=== PATIENT | male | born 1945 | race Caucasian/White ===

== ENCOUNTER 2021-02-18 12:09 | Inpatient (IN) | payer OTHER, MEDICARE ==
[~2021-02-18] VITALS: Ht 172.7 cm; Wt 178.0 kg
[2021-02-18 12:56] LABS: BASOPHILS # (AUTO) 0.1 X10'3 (0-0.2); BASOPHILS % (AUTO) 0.7 % (0-1); EOSINOPHILS # (AUTO) 0.3 X10'3 (0-0.9); NEUTROPHILS # (AUTO) 8.9 X10'3 (1.8-7.7)
[2021-02-18 12:58] LABS: EOSINOPHILS % (AUTO) 1.9 % (0-6); HEMATOCRIT 39.2 % (42.0-52.0); LYMPHOCYTES # (AUTO) 2.1 X10'3 (1.1-4.8); LYMPHOCYTES % (AUTO) 15.4 % (21-51); MEAN CORPUSCULAR HEMOGLOBIN 30.5 PG (27.0-31.0); MEAN CORPUSCULAR HGB CONC 33.1 g/dL (33.0-36.5); MEAN CORPUSCULAR VOLUME 92.4 FL (78-98); MEAN PLATELET VOLUME 11.6 FL (7.4-10.4); MONOCYTES # (AUTO) 2.6 X10'3 (0-0.9); MONOCYTES % (AUTO) 18.4 % (2-12); NEUTROPHILS % (AUTO) 63.6 % (42-75); PLATELET COUNT 230 X10'3 (140-440); RED BLOOD COUNT 4.24 X10'6 (4.70-6.10); RED CELL DISTRIBUTION WIDTH 15.1 % (11.5-14.5); WHITE BLOOD COUNT 13.9 X10'3 (4.5-11.0)
[2021-02-18 13:09] LABS: ALANINE AMINOTRANSFERASE 33 U/L (12-78); ALBUMIN 3.4 G/DL (3.4-5.0); ALBUMIN/GLOBULIN RATIO 0.7 (1.1-1.5); ALKALINE PHOSPHATASE 84 IU/L (46-116); ANION GAP 12 (8-16); ASPARTATE AMINO TRANSFERASE 51 U/L (10-37); BILIRUBIN,TOTAL 1.3 MG/DL (0.1-1.0); BLOOD UREA NITROGEN 33 MG/DL (7-18); BUN/CREATININE RATIO 21.2 (5.4-32.0); CALCIUM 9.2 MG/DL (8.5-10.1); CHLORIDE 101 MMOL/L (99-107); CREATININE 1.56 MG/DL (0.60-1.10); GLUCOSE 127 MG/DL (70-104); POTASSIUM 3.9 MMOL/L (3.5-5.1); SODIUM 139 MMOL/L (135-145); TOTAL CARBON DIOXIDE 26.1 MMOL/L (24-32); eGFR 44 ML/MIN
[2021-02-18] MEDS ORDERED: CefTRIAXone 2gm/D5W 50ml BAG 50 ML IV ONE (14:10)
[2021-02-18] MEDS ORDERED: azithromycin/NS 500mg/250ml 250 ML IV ONE (14:10)
[2021-02-18] MEDS ORDERED: albuterol 2.5 MG/3 ML nebule CONTNEB PRN (14:20)
[2021-02-18] MEDS ORDERED: methylPREDNISolone sod succ 125mg/2ml vial IV ONE (14:20)
[2021-02-18] MEDS ORDERED: ipratropium 0.5 MG/2.5ML nebule IH ONE (14:20)
[2021-02-18] MEDS ORDERED: normal saline 1000ML IV soln IVB ONE (14:25)
[2021-02-18 15:18] LABS: ABG BASE EXCESS -1.5 mmol/L (-2.0-2.0); ABG HCO3 22.2 mmol/L (22.0-26.0); ABG PCO2 (T) 34.4 mmHg (35.0-48.0); ABG PO2 (T) 87.4 mmHg (75.0-100.0); ALLEN'S TEST POSITIVE; FCOHb 1.3 % (0.0-3.9); FLOW 3 L/min; FMetHb 0.3 % (0.0-1.5); FO2Hb 94.5 % (94-97); TOTAL HEMOGLOBIN 12.9 G/dl (14.0-18.0)
[2021-02-18] MEDS ORDERED: morphine 2 MG/ML inj. syringe IV PRN ×2 (16:05)
[2021-02-18] MEDS ORDERED: magnesium hydroxide 30ml (MOM) UD suspension PO PRN (16:05)
[2021-02-18] MEDS ORDERED: ondansetron/PF 4mg/2ml inj IV PRN (16:05)
[2021-02-18] MEDS ORDERED: mag hydrox/Alum hydrox/simeth 30ml oral suspension PO PRN (16:05)
[2021-02-18] MEDS ORDERED: acetaminophen 325mg tablet PO PRN ×2 (16:05)
[2021-02-18] MEDS: HYDROcodone/acetaminophen 5mg/325mg tablet PO PRN ×2 (16:23→23:43)
[2021-02-18] MEDS ORDERED: BUDE10.2 INH (16:24)
[2021-02-18] MEDS ORDERED: ROSU10TA2 PO (16:24)
[2021-02-18] MEDS ORDERED: CARB-212 PO (16:24)
[2021-02-18] MEDS ORDERED: ZOLP5TAB2 PO (16:24)
[2021-02-18] MEDS ORDERED: CARV-49 PO (16:24)
[2021-02-18] MEDS ORDERED: FLUT16SP2 BOTHNARES (16:24)
[2021-02-18] MEDS ORDERED: NITR0.4T51 SL (16:24)
[2021-02-18] MEDS ORDERED: CLOP75TA15 PO (16:24)
[2021-02-18] MEDS ORDERED: CHOL20004 PO (16:24)
[2021-02-18] MEDS ORDERED: LEVO150T8 PO (16:24)
[2021-02-18] MEDS ORDERED: PRED5DRO23 EACHEYE (16:24)
[2021-02-18] MEDS ORDERED: ISOS60TA71 PO (16:24)
[2021-02-18] MEDS ORDERED: TIOT4MIS5 IH (16:24)
[2021-02-18] MEDS ORDERED: DULO20CA50 PO (16:24)
[2021-02-18] MEDS ORDERED: WOOL454C TP (16:24)
[2021-02-18] MEDS ORDERED: LIDO700A32 TOP (16:24)
[2021-02-18] MEDS ORDERED: NIFE-33 PO (16:24)
[2021-02-18] MEDS ORDERED: OMEP20TA23 PO (16:24)
[2021-02-18] MEDS ORDERED: FLO0.4C PO (16:24)
[2021-02-18] MEDS ORDERED: MONT10TA21 PO (16:24)
[2021-02-18] MEDS ORDERED: ASPI-611 PO (16:24)
[2021-02-18] MEDS ORDERED: nitroGLYCERIN 0.4mg SUBLingual tab SL PRN (16:55)
[2021-02-18] MEDS: levoFLOXACIN-Levaquin 750MG/D5 150 ML IV SCH (17:21)
[2021-02-18] MEDS: carvedilol 6.25mg tablet PO SCH (18:22)
--- NOTE | 2021-02-18 19:16 | NUR ---
report given to bruno pratt in [facility]
[2021-02-18 20:00] VITALS: BP 104/68
[2021-02-18] MEDS: mineral oil/petrolatum, white cream 113gm jar TP SCH (20:00)
[2021-02-18] MEDS ORDERED: budesonide 0.5mg/2ml UD nebule IH SCH (20:00)
[2021-02-18] MEDS: budesonide 0.5mg/2ml UD nebule IH SCH (20:23)
[2021-02-18 22:00] VITALS: BP 109/69
[2021-02-18] MEDS: montelukast 10mg tablet PO SCH (23:41)
[2021-02-18] MEDS: methylPREDNISolone sod succ 125mg/2ml vial IV SCH (23:41)
[2021-02-18] MEDS: carBAMazepine Ext. Release 200 MG TAB.ER.12H PO SCH (23:42)
[2021-02-19] MEDS: zolpidem 5mg tablet PO PRN ×2 (01:36→20:56)
[2021-02-19 06:00] VITALS: BP 146/74
[2021-02-19 06:34] LABS: ALBUMIN 2.8 G/DL (3.4-5.0); ANION GAP 9 (8-16); BLOOD UREA NITROGEN 27 MG/DL (7-18); BUN/CREATININE RATIO 23.9 (5.4-32.0); CALCIUM 8.7 MG/DL (8.5-10.1); CHLORIDE 103 MMOL/L (99-107); CREATININE 1.13 MG/DL (0.60-1.10); GLUCOSE 146 MG/DL (70-104); POTASSIUM 4.6 MMOL/L (3.5-5.1); SODIUM 137 MMOL/L (135-145); TOTAL CARBON DIOXIDE 25.1 MMOL/L (24-32); eGFR 63 ML/MIN
[2021-02-19 06:38] LABS: BASOPHILS % (AUTO) 0.1 % (0-1); EOSINOPHILS % (AUTO) 0 % (0-6); MEAN CORPUSCULAR HGB CONC 33.4 g/dL (33.0-36.5); MEAN CORPUSCULAR VOLUME 92.9 FL (78-98); MONOCYTES # (AUTO) 0.9 X10'3 (0-0.9); NEUTROPHILS # (AUTO) 8.8 X10'3 (1.8-7.7)
--- NOTE | 2021-02-19 06:40 | NUR ---
Patient in room PCU 3010. I have received report from Nicole MCKINNON and had the opportunity to ask questions and assume patient care.
[2021-02-19 06:41] LABS: HEMATOCRIT 38.4 % (42.0-52.0); HEMOGLOBIN 12.8 g/dl (14.0-17.9); LYMPHOCYTES # (AUTO) 1.4 X10'3 (1.1-4.8); LYMPHOCYTES % (AUTO) 12.8 % (21-51); MONOCYTES % (AUTO) 8.3 % (2-12); NEUTROPHILS % (AUTO) 78.8 % (42-75); PLATELET COUNT 223 X10'3 (140-440); RED BLOOD COUNT 4.14 X10'6 (4.70-6.10); RED CELL DISTRIBUTION WIDTH 15.3 % (11.5-14.5); WHITE BLOOD COUNT 11.1 X10'3 (4.5-11.0)
[2021-02-19 06:55] VITALS: BP 158/90
--- NOTE | 2021-02-19 07:06 | NUR ---
Problems reprioritized. Patient report given, questions answered & plan of care reviewed with Jonathan MCKINONN.
[2021-02-19 07:20] LABS: ANISOCYTOSIS 1+; LARGE PLATELETS FEW; PLATELET ESTIMATE NORMAL
[2021-02-19] MEDS: carvedilol 6.25mg tablet PO SCH ×2 (07:30→17:25)
[2021-02-19] MEDS: cholecalciferol (vitamin D3) 1,000 unit (25mcg) tablet PO SCH (08:00)
[2021-02-19] MEDS: pantoprazole 40mg Tablet.DR PO SCH (08:00)
[2021-02-19] MEDS: aspirin 81mg tablet.DR PO SCH (08:00)
[2021-02-19] MEDS: methylPREDNISolone sod succ 125mg/2ml vial IV SCH ×3 (08:00→23:28)
[2021-02-19] MEDS: duloxetine 20mg capsule.DR PO SCH (08:00)
[2021-02-19] MEDS: isosorbide mononitrate 30mg tab.SR.24H PO SCH (08:00)
[2021-02-19] MEDS: enoxaparin 40mg/0.4ml syringe SUBCUT SCH (08:00)
[2021-02-19] MEDS: atorvastatin 20mg tablet PO SCH (08:00)
[2021-02-19] MEDS: mineral oil/petrolatum, white cream 113gm jar TP SCH ×2 (08:00→20:04)
[2021-02-19] MEDS: tamsulosin 0.4mg capsule PO SCH (08:00)
[2021-02-19] MEDS: levoTHYROXINE 75mcg tablet PO SCH (08:00)
[2021-02-19] MEDS: NIFEdipine XL 30mg tablet PO SCH (08:00)
[2021-02-19] MEDS: clopidogrel 75mg tablet PO SCH (08:00)
[2021-02-19] MEDS: ipratropium 0.5 MG/2.5ML nebule NEB SCH ×3 (09:39→19:38)
[2021-02-19] MEDS: budesonide 0.5mg/2ml UD nebule IH SCH ×2 (09:39→19:38)
[2021-02-19] MEDS: levoFLOXACIN-Levaquin 750MG/D5 150 ML IV SCH (09:43)
[2021-02-19] MEDS: fluticasone nasal spray 16GM bottle NS SCH (09:44)
[2021-02-19] MEDS: prednisoLONE acetate 1% ophth susp 5ml EACHEYE PRN ×2 (09:45→20:31)
[2021-02-19 11:00] VITALS: BP 137/76
--- NOTE | 2021-02-19 12:19 | NUR ---
Malnutrition consult: Pt unsure of wt loss though reports decreased appetite per malnutrition risk screen with RN. Pt seen at bedside reports UBW 175-185 lbs, current documented scaled wt is 178 kg though likely wt in lbs documented in kg. Pt 100% reported UBW. Pt denies wt loss and endorses a good appetite. Pt with no documented significant decrease in muscle strength or edema. No visible fat or muscle wasting. Pt currently lacks a minimum of two criteria for malnutrition. Pt denies food allergies, difficulty chewing/swallowing, or constipation/diarrhea. Reports LBM 02/19. Pt provided with alternative menu and RD contact information. Will continue to follow. Addendum: 02/19/21 at [address] Amended: Links added.
[2021-02-19 15:00] VITALS: BP 115/67
[2021-02-19 18:00] VITALS: BP 125/70
--- NOTE | 2021-02-19 18:15 | NUR ---
Patient in room PCU 3010. I have received report from PRATIBHA Castillo and had the opportunity to ask questions and assume patient care.
[2021-02-19] MEDS: montelukast 10mg tablet PO SCH (20:04)
[2021-02-19] MEDS: lactobacillus rhamnosus 10,000 MMU CELLS/CAPSULE PO SCH (20:04)
[2021-02-19] MEDS: carBAMazepine Ext. Release 200 MG TAB.ER.12H PO SCH (20:05)
[2021-02-19] MEDS: HYDROcodone/acetaminophen 5mg/325mg tablet PO PRN (20:31)
[2021-02-19 22:00] VITALS: BP 117/58
[2021-02-20 02:00] VITALS: BP 116/67
[2021-02-20] MEDS: ipratropium 0.5 MG/2.5ML nebule NEB SCH ×2 (02:23→07:16)
[2021-02-20 06:00] VITALS: BP 152/92
--- NOTE | 2021-02-20 06:02 | NUR ---
Problems reprioritized. Patient report given, questions answered & plan of care reviewed with PRATIBHA maldonado.
--- NOTE | 2021-02-20 06:08 | NUR ---
Patient in room PCU 3010. I have received report from PRATIBHA Pacheco and had the opportunity to ask questions and assume patient care.
[2021-02-20 06:47] LABS: BASOPHILS % (AUTO) 0.1 % (0-1); EOSINOPHILS % (AUTO) 0 % (0-6); HEMATOCRIT 38.3 % (42.0-52.0); HEMOGLOBIN 12.7 g/dl (14.0-17.9); LYMPHOCYTES # (AUTO) 1.7 X10'3 (1.1-4.8); LYMPHOCYTES % (AUTO) 11.6 % (21-51); MEAN CORPUSCULAR HEMOGLOBIN 30.6 PG (27.0-31.0); MEAN CORPUSCULAR HGB CONC 33.1 g/dL (33.0-36.5); MEAN CORPUSCULAR VOLUME 92.4 FL (78-98); MEAN PLATELET VOLUME 11.6 FL (7.4-10.4); MONOCYTES # (AUTO) 1.4 X10'3 (0-0.9); MONOCYTES % (AUTO) 9.2 % (2-12); NEUTROPHILS # (AUTO) 11.7 X10'3 (1.8-7.7); NEUTROPHILS % (AUTO) 79.1 % (42-75); PLATELET COUNT 288 X10'3 (140-440); RED BLOOD COUNT 4.14 X10'6 (4.70-6.10); RED CELL DISTRIBUTION WIDTH 15.1 % (11.5-14.5); WHITE BLOOD COUNT 14.8 X10'3 (4.5-11.0)
[2021-02-20 07:03] LABS: ALBUMIN 2.8 G/DL (3.4-5.0); ANION GAP 8 (8-16); BLOOD UREA NITROGEN 25 MG/DL (7-18); CALCIUM 9.1 MG/DL (8.5-10.1); CHLORIDE 103 MMOL/L (99-107); CREATININE 1.19 MG/DL (0.60-1.10); GLUCOSE 135 MG/DL (70-104); POTASSIUM 4.5 MMOL/L (3.5-5.1); SODIUM 138 MMOL/L (135-145); TOTAL CARBON DIOXIDE 26.9 MMOL/L (24-32); eGFR 60 ML/MIN
[2021-02-20] MEDS: budesonide 0.5mg/2ml UD nebule IH SCH (07:17)
[2021-02-20] MEDS: NIFEdipine XL 30mg tablet PO SCH (07:56)
[2021-02-20] MEDS: atorvastatin 20mg tablet PO SCH (07:57)
[2021-02-20] MEDS: isosorbide mononitrate 30mg tab.SR.24H PO SCH (07:57)
[2021-02-20] MEDS: aspirin 81mg tablet.DR PO SCH (07:57)
[2021-02-20] MEDS: carvedilol 6.25mg tablet PO SCH (07:57)
[2021-02-20] MEDS: lactobacillus rhamnosus 10,000 MMU CELLS/CAPSULE PO SCH (07:58)
[2021-02-20] MEDS: levoTHYROXINE 75mcg tablet PO SCH (07:58)
[2021-02-20] MEDS: pantoprazole 40mg Tablet.DR PO SCH (07:58)
[2021-02-20] MEDS: clopidogrel 75mg tablet PO SCH (07:58)
[2021-02-20] MEDS: cholecalciferol (vitamin D3) 1,000 unit (25mcg) tablet PO SCH (07:59)
[2021-02-20] MEDS: duloxetine 20mg capsule.DR PO SCH (07:59)
[2021-02-20] MEDS: fluticasone nasal spray 16GM bottle NS SCH (07:59)
[2021-02-20] MEDS: tamsulosin 0.4mg capsule PO SCH (07:59)
[2021-02-20] MEDS: levoFLOXACIN-Levaquin 750MG/D5 150 ML IV SCH (08:00)
[2021-02-20] MEDS: methylPREDNISolone sod succ 125mg/2ml vial IV SCH (08:00)
[2021-02-20] MEDS: enoxaparin 40mg/0.4ml syringe SUBCUT SCH (08:00)
[2021-02-20] MEDS: mineral oil/petrolatum, white cream 113gm jar TP SCH (08:01)
[2021-02-20] MEDS ORDERED: LEVO750T46 PO (08:32)
[2021-02-20] MEDS ORDERED: IPRA3AMP9 IH (08:32)
[2021-02-20] MEDS ORDERED: PRED20TA PO (08:32)
[2021-02-20 11:00] VITALS: BP 150/88
--- NOTE | 2021-02-20 12:59 | NUR ---
Patient stable for discharge per MD orders. PIV discontinued intact. residential monitor removed and returned to telemetry office.
--- NOTE | 2021-02-20 13:05 | NUR ---
Patient stable for discharge per MD orders. PIV discontinued intact. school lunch monitor removed and returned to telemetry office. All instructions reviewed with patient, who was given the chance to ask questions and indicated understanding. Patient wheeled to their own vehicle, where they departed with their service dog, heading home.
== END 2021-02-20 12:11 | disposition home health service (06) | DRG 189 ==
LOC: ER 12:10 → ED HOLD 16:01 → EDBEDREQ 18:55 → PCU 3S 19:20
PROVIDERS: ADMIT Internal Medicine; ATTEND Internal Medicine
DX: J96.21 Acute and chronic respiratory failure with hypoxia (principal); J44.0 Chronic obstructive pulmonary disease with (acute) lower respiratory infection; J44.1 Chronic obstructive pulmonary disease with (acute) exacerbation; N17.9 Acute kidney failure, unspecified; E03.9 Hypothyroidism, unspecified; E78.5 Hyperlipidemia, unspecified; Z20.822 Contact with and (suspected) exposure to COVID-19; R03.0 Elevated blood-pressure reading, without diagnosis of hypertension; I25.10 Atherosclerotic heart disease of native coronary artery without angina pectoris; N40.0 Benign prostatic hyperplasia without lower urinary tract symptoms; I25.2 Old myocardial infarction; Z87.891 Personal history of nicotine dependence; Z95.1 Presence of aortocoronary bypass graft; Z99.81 Dependence on supplemental oxygen; Z79.899 Other long term (current) drug therapy
CPT/HCPCS: 36415; 36600; 71045; 80048; 80053; 82803; 83880; 84145; 84484; 85008; 85018; 85025; 87070; 87081; 87635; 93005; 94640; 94760; 96365; 96368; 96375; 99285; C9803; G0378; J0456; J0696; J1650; J1956; J2930; J7030; J7626

== ENCOUNTER 2021-06-09 04:51 | Emergency (ER) | payer OTHER, MEDICARE ==
[~2021-06-09] VITALS: Ht 172.7 cm; Wt 84.1 kg
[~2021-06-09 04:51] MED LIST: ASPI-611 PO; BUDE10.2 INH; CARB-212 PO; CARV-49 PO; CHOL20004 PO; CLOP75TA15 PO; DULO20CA50 PO; FLO0.4C PO; FLUT16SP2 BOTHNARES; IPRA3AMP9 IH; ISOS60TA71 PO; LEVO150T8 PO; LIDO700A32 TOP; MONT10TA21 PO; NIFE-33 PO; NITR0.4T51 SL; OMEP20TA23 PO; PRED5DRO23 EACHEYE; ROSU10TA2 PO; TIOT4MIS5 IH; WOOL454C TP; ZOLP5TAB2 PO
[2021-06-09 05:02] VITALS: BP 189/112
[2021-06-10] MEDS ORDERED: LIDOcaine 0.5% (5mg/ml) 50ml vial ONE (07:22)
== END 2021-06-10 07:29 | disposition home or self-care (01) ==
LOC: ER 04:52
DX: R04.0 Epistaxis (principal); I25.10 Atherosclerotic heart disease of native coronary artery without angina pectoris; I25.2 Old myocardial infarction; J44.9 Chronic obstructive pulmonary disease, unspecified; Z98.890 Other specified postprocedural states; Z79.82 Long term (current) use of aspirin; Z79.899 Other long term (current) drug therapy
CPT/HCPCS: 99283; J2001

== ENCOUNTER 2021-11-28 10:33 | Emergency (ER) | payer OTHER, MEDICARE ==
[~2021-11-28] VITALS: Ht 175.3 cm; Wt 84.1 kg
[2021-11-28 10:37] VITALS: BP 213/134
--- NOTE | 2021-11-28 11:01 | NUR ---
Pt sitting upright on edge of bed, with IV in LAC, on CM, yelling at staff to "get this thing out of me, I am leaving." Attempted to explain to patient the plan of care and he continued to get angry and is refusing any further care and treatment. Dr Wong in at bedside. Pt still refusing care and treatment. Asked how he would manage to get home and he stated "I will take a taxi." Removed all equipment from pt who has obvious SOB, states he is on home O2. IV dc'd. I asked how patient was going to get home without O2 and he stated "I will be fine." Remains angry and hostile towards staff. Advised of possible risks, up to and including . Pt refused to sign AMA. Ambulated out of ED and ask Registration to call him a taxi.
[2021-11-28 11:08] LABS: BASOPHILS # (AUTO) 0.1 X10'3 (0-0.2); BASOPHILS % (AUTO) 0.9 % (0-1); EOSINOPHILS # (AUTO) 0.7 X10'3 (0-0.9); EOSINOPHILS % (AUTO) 5.1 % (0-6); HEMATOCRIT 43.9 % (42.0-52.0); HEMOGLOBIN 14.8 g/dl (14.0-17.9); LYMPHOCYTES % (AUTO) 22.4 % (21-51); MEAN CORPUSCULAR HGB CONC 33.8 g/dL (33.0-36.5); MEAN CORPUSCULAR VOLUME 88.9 FL (78-98); MEAN PLATELET VOLUME 10.8 FL (7.4-10.4); MONOCYTES # (AUTO) 1.5 X10'3 (0-0.9); MONOCYTES % (AUTO) 11.5 % (2-12); NEUTROPHILS # (AUTO) 8.1 X10'3 (1.8-7.7); NEUTROPHILS % (AUTO) 60.1 % (42-75); PLATELET COUNT 221 X10'3 (140-440); RED BLOOD COUNT 4.94 X10'6 (4.70-6.10); RED CELL DISTRIBUTION WIDTH 14.5 % (11.5-14.5); WHITE BLOOD COUNT 13.4 X10'3 (4.5-11.0)
[2021-11-28 11:27] LABS: ALANINE AMINOTRANSFERASE 23 U/L (12-78); ALBUMIN 3.9 G/DL (3.4-5.0); ALKALINE PHOSPHATASE 95 IU/L (46-116); ANION GAP 10 (8-16); ASPARTATE AMINO TRANSFERASE 18 U/L (10-37); BILIRUBIN,TOTAL 0.5 MG/DL (0.1-1.0); BLOOD UREA NITROGEN 21 MG/DL (7-18); BUN/CREATININE RATIO 17.8 (5.4-32.0); CALCIUM 9.4 MG/DL (8.5-10.1); CHLORIDE 101 MMOL/L (99-107); CREATININE 1.18 MG/DL (0.60-1.10); GLUCOSE 102 MG/DL (70-104); POTASSIUM 4.1 MMOL/L (3.5-5.1); SODIUM 137 MMOL/L (135-145); TOTAL CARBON DIOXIDE 25.8 MMOL/L (24-32); TOTAL PROTEIN 7.9 G/DL (6.4-8.2); eGFR 60 ML/MIN
[2021-11-28 11:32] LABS: LARGE PLATELETS FEW; PLATELET ESTIMATE NORMAL
== END 2021-11-28 11:16 | disposition left against medical advice (07) ==
LOC: ER 10:33
DX: R07.89 Other chest pain (principal); R06.02 Shortness of breath; R45.1 Restlessness and agitation; I25.10 Atherosclerotic heart disease of native coronary artery without angina pectoris; I25.2 Old myocardial infarction; J44.9 Chronic obstructive pulmonary disease, unspecified; Z95.5 Presence of coronary angioplasty implant and graft; Z79.82 Long term (current) use of aspirin; Z79.899 Other long term (current) drug therapy
CPT/HCPCS: 36415; 71045; 80053; 83880; 84484; 85008; 85025; 93005; 99285

== ENCOUNTER 2022-06-23 00:17 | Emergency (ER) | payer OTHER, MEDICARE ==
[~2022-06-23] VITALS: Ht 172.7 cm; Wt 90.0 kg
[2022-06-23 01:03] LABS: BASOPHILS # (AUTO) 0.1 X10'3 (0-0.2); BASOPHILS % (AUTO) 0.9 % (0-1); EOSINOPHILS # (AUTO) 0.6 X10'3 (0-0.9); EOSINOPHILS % (AUTO) 4.3 % (0-6); HEMATOCRIT 43.9 % (42.0-52.0); HEMOGLOBIN 14.3 g/dl (14.0-17.9); LYMPHOCYTES # (AUTO) 3.4 X10'3 (1.1-4.8); LYMPHOCYTES % (AUTO) 24.8 % (21-51); MEAN CORPUSCULAR HEMOGLOBIN 30.1 PG (27.0-31.0); MEAN CORPUSCULAR HGB CONC 32.6 g/dL (33.0-36.5); MEAN CORPUSCULAR VOLUME 92.2 FL (78-98); MEAN PLATELET VOLUME 11.1 FL (7.4-10.4); MONOCYTES # (AUTO) 1.9 X10'3 (0-0.9); MONOCYTES % (AUTO) 13.8 % (2-12); NEUTROPHILS # (AUTO) 7.8 X10'3 (1.8-7.7); NEUTROPHILS % (AUTO) 56.2 % (42-75); PLATELET COUNT 229 X10'3 (140-440); RED BLOOD COUNT 4.76 X10'6 (4.70-6.10); RED CELL DISTRIBUTION WIDTH 15.4 % (11.5-14.5); WHITE BLOOD COUNT 13.9 X10'3 (4.5-11.0)
[2022-06-23 01:19] LABS: ALANINE AMINOTRANSFERASE 16 U/L (12-78); ALBUMIN 3.5 G/DL (3.4-5.0); ALBUMIN/GLOBULIN RATIO 0.9 (1.1-1.5); ALKALINE PHOSPHATASE 77 IU/L (46-116); ANION GAP 10 (8-16); ASPARTATE AMINO TRANSFERASE 20 U/L (10-37); BILIRUBIN,TOTAL 0.3 MG/DL (0.1-1.0); BLOOD UREA NITROGEN 23 MG/DL (7-18); BUN/CREATININE RATIO 17.4 (5.4-32.0); CHLORIDE 105 MMOL/L (99-107); CREATININE 1.32 MG/DL (0.60-1.10); GLUCOSE 101 MG/DL (70-104); SODIUM 143 MMOL/L (135-145); TOTAL CARBON DIOXIDE 28.5 MMOL/L (24-32); TOTAL PROTEIN 7.4 G/DL (6.4-8.2); eGFR 53 ML/MIN
[2022-06-23] MEDS ORDERED: iohexol 350MG/ML 100ml bottle IV ONE (01:21)
[2022-06-23 01:27] LABS: LIPASE < 50 U/L (73-393)
[2022-06-23 01:30] LABS: POTASSIUM 4.3 MMOL/L (3.5-5.1)
[2022-06-23 01:42] LABS: PLATELET ESTIMATE NORMAL
[2022-06-23 01:43] LABS: LARGE PLATELETS MODERATE
[2022-06-23] MEDS: nitroGLYCERIN 0.4mg SUBLingual tab SL PRN ×2 (02:18→02:40)
--- NOTE | 2022-06-23 08:38 | NUR ---
NOTIFIED OF INCREASE IN PT'S BLOOD PRESSURE
[2022-06-23] MEDS ORDERED: nitroGLYCERIN 0.4mg/hour patch TD ONE (10:25)
--- NOTE | 2022-06-23 10:28 | NUR ---
[facility] says they can not accept the patient on a drip since the patient is going to a tele-bed. we are holding the patient now and waiting to hear back from quentin. wants to dc drip and start nitro. dontrell does not want to stop the drip at this time
[2022-06-23 11:01] VITALS: BP 162/96
== END 2022-06-23 11:43 | disposition short-term general hospital (02) ==
LOC: ER 00:18
DX: I71.43 Infrarenal abdominal aortic aneurysm, without rupture (principal); Z20.822 Contact with and (suspected) exposure to COVID-19; J44.9 Chronic obstructive pulmonary disease, unspecified; Z79.899 Other long term (current) drug therapy; Z79.82 Long term (current) use of aspirin; Z88.8 Allergy status to other drugs, medicaments and biological substances
CPT/HCPCS: 36415; 71045; 71275; 74174; 80053; 83690; 83880; 84484; 85008; 85025; 85610; 86885; 86900; 86901; 87811; 93005; 99285; J3490; Q9967

== ENCOUNTER 2022-07-19 11:23 | Emergency (ER) | payer OTHER ==
[~2022-07-19] VITALS: Ht 170.2 cm; Wt 65.0 kg
[~2022-07-19 11:23] MED LIST changes: +ALBU18HF2 INH; +ALBU2.5V13 NEB; +ASPI-1265 PO; -ASPI-611 PO; -BUDE10.2 INH; +CARB-226 EACHEYE; +CHOL100046 PO; -CHOL20004 PO; +CYAN500T46 PO; -FLUT16SP2 BOTHNARES; -IPRA3AMP9 IH; +ISOS20TA15 PO; -ISOS60TA71 PO; +LEVO-65 PO; +METF-516 PO; -NITR0.4T51 SL; -OMEP20TA23 PO; +PANT-47 PO; +PRED10TA23 PO; -PRED5DRO23 EACHEYE; -ROSU10TA2 PO; +ROSU20TA2 PO; +TIMO1DRO8 RIGHTEYE; -TIOT4MIS5 IH; -WOOL454C TP; +XAL0.005OS RIGHTEYE
--- NOTE | 2022-07-19 12:37 | NUR ---
PT WAS GIVEN AN O2 CHALLENGE. PT WAS TAKEN OFF 3L FIO2 NASAL CANULA AND HIS SATS DROPPED TO 82-84% IN ROOM AIR. PT WAS PLACED BACK ON THE NASAL CANULA AT 3L FIO2 AND HIS O2 SATS WENT UP TO 94-95% CASE MANAGEMENT WAS NOTIFIED.
--- NOTE | 2022-07-19 14:20 | NUR ---
SPOKE WITH AMPARO FROM [facility] AND SHE STATED THAT [facility] SPOKE WITH [facility] AND THAT SITUATION HAS BEEN HANDLED AND APPROVED. [facility] SHOULD BE ON THE WAY TO DELIVER O2 TANK. AMPARO INQUIRED IF NEW MEDICATIONS ARE ORDERS. CALLED AND SPOKE TO HERACLIO IN ER. NOTIFED HER THAT [facility]2 IS ON ITS WAY WHICH WAS CONFIRMED BY DCP IN 15-20 MINUTES. ASKED IF THERE WERE ANY NEW MEDICATIONS AND NO NEW MEDS ARE ORDERED. CALLED AND NOTIFED AMPARO.
[2022-07-19 15:13] VITALS: BP 97/68
[2022-07-21] MEDS ORDERED: PANT-47 PO ×2 (21:55→22:00)
[2022-07-21] MEDS ORDERED: PRED20TA PO (21:55)
[2022-07-21] MEDS ORDERED: PRED10TA23 PO (22:00)
[2022-07-21] MEDS ORDERED: LEVO-65 PO (22:01)
== END 2022-07-19 15:14 | disposition home or self-care (01) ==
LOC: ER 11:24
DX: J44.9 Chronic obstructive pulmonary disease, unspecified (principal); I11.9 Hypertensive heart disease without heart failure; E78.00 Pure hypercholesterolemia, unspecified; K21.9 Gastro-esophageal reflux disease without esophagitis; D64.9 Anemia, unspecified; E11.9 Type 2 diabetes mellitus without complications; E03.9 Hypothyroidism, unspecified; G89.29 Other chronic pain; Z79.899 Other long term (current) drug therapy; Z79.82 Long term (current) use of aspirin
CPT/HCPCS: 93005; 99284

== ENCOUNTER 2022-07-23 07:23 | Emergency (ER) | payer OTHER, MEDICARE ==
[~2022-07-23] VITALS: Ht 175.3 cm; Wt 70.0 kg
[2022-07-23 07:48] LABS: BASOPHILS % (AUTO) 0.4 % (0-1); EOSINOPHILS # (AUTO) 0.1 X10'3 (0-0.9); EOSINOPHILS % (AUTO) 0.5 % (0-6); HEMATOCRIT 34.4 % (42.0-52.0); HEMOGLOBIN 11.3 g/dl (14.0-17.9); LYMPHOCYTES # (AUTO) 1.3 X10'3 (1.1-4.8); LYMPHOCYTES % (AUTO) 11.8 % (21-51); MEAN CORPUSCULAR HEMOGLOBIN 29.6 PG (27.0-31.0); MEAN CORPUSCULAR HGB CONC 32.7 g/dL (33.0-36.5); MEAN CORPUSCULAR VOLUME 90.4 FL (78-98); MEAN PLATELET VOLUME 9.2 FL (7.4-10.4); MONOCYTES # (AUTO) 1.5 X10'3 (0-0.9); NEUTROPHILS # (AUTO) 8.5 X10'3 (1.8-7.7); NEUTROPHILS % (AUTO) 74.3 % (42-75); PLATELET COUNT 191 X10'3 (140-440); RED BLOOD COUNT 3.81 X10'6 (4.70-6.10); RED CELL DISTRIBUTION WIDTH 15.6 % (11.5-14.5); WHITE BLOOD COUNT 11.4 X10'3 (4.5-11.0)
[2022-07-23 08:03] LABS: ALANINE AMINOTRANSFERASE 33 U/L (12-78); ALBUMIN 3.2 G/DL (3.4-5.0); ALBUMIN/GLOBULIN RATIO 0.8 (1.1-1.5); ALKALINE PHOSPHATASE 83 IU/L (46-116); ANION GAP 10 (8-16); ASPARTATE AMINO TRANSFERASE 49 U/L (10-37); BILIRUBIN,TOTAL 0.3 MG/DL (0.1-1.0); BLOOD UREA NITROGEN 15 MG/DL (7-18); BUN/CREATININE RATIO 15.2 (5.4-32.0); CALCIUM 9.2 MG/DL (8.5-10.1); CHLORIDE 100 MMOL/L (99-107); CREATININE 0.99 MG/DL (0.60-1.10); GLUCOSE 110 MG/DL (70-104); POTASSIUM 3.9 MMOL/L (3.5-5.1); SODIUM 138 MMOL/L (135-145); TOTAL CARBON DIOXIDE 28.2 MMOL/L (24-32); TOTAL PROTEIN 7.4 G/DL (6.4-8.2); eGFR 73 ML/MIN
[2022-07-23] MEDS ORDERED: methylPREDNISolone sod succ 125mg/2ml vial IV ONE (08:30)
[2022-07-23] MEDS ORDERED: albuterol 2.5 MG/3 ML nebule CONTNEB PRN (08:30)
[2022-07-23 11:34] VITALS: BP 167/84
== END 2022-07-23 11:59 | disposition home or self-care (01) ==
LOC: ER 07:23
DX: J44.1 Chronic obstructive pulmonary disease with (acute) exacerbation (principal); E78.00 Pure hypercholesterolemia, unspecified; I10 Essential (primary) hypertension; K21.9 Gastro-esophageal reflux disease without esophagitis; E11.9 Type 2 diabetes mellitus without complications; E03.9 Hypothyroidism, unspecified; G89.29 Other chronic pain
CPT/HCPCS: 36415; 71045; 80053; 83605; 83880; 85025; 87040; 93005; 94640; 96374; 99285; J2930; 94760; A4615; A7015

== ENCOUNTER 2023-03-20 18:51 | Emergency (ER) | payer OTHER, MEDICARE ==
[~2023-03-20] VITALS: Ht 175.3 cm; Wt 79.5 kg
[~2023-03-20 18:51] MED LIST changes: -LEVO-65 PO; +METH4TAB81 PO; +MONT-47 PO; -MONT10TA21 PO; -PRED10TA23 PO; +TIMO1DRO12 RIGHTEYE; -TIMO1DRO8 RIGHTEYE
[2023-03-20 19:13] LABS: BASOPHILS # (AUTO) 0.1 X10'3 (0-0.2); BASOPHILS % (AUTO) 0.9 % (0-1); EOSINOPHILS # (AUTO) 0.3 X10'3 (0-0.9); EOSINOPHILS % (AUTO) 2.1 % (0-6); HEMATOCRIT 38.9 % (42.0-52.0); HEMOGLOBIN 12.7 g/dl (14.0-17.9); LYMPHOCYTES # (AUTO) 2.2 X10'3 (1.1-4.8); LYMPHOCYTES % (AUTO) 14.5 % (21-51); MEAN CORPUSCULAR HEMOGLOBIN 28.6 PG (27.0-31.0); MEAN CORPUSCULAR HGB CONC 32.7 g/dL (33.0-36.5); MEAN CORPUSCULAR VOLUME 87.5 FL (78-98); MEAN PLATELET VOLUME 9.8 FL (7.4-10.4); MONOCYTES # (AUTO) 1.2 X10'3 (0-0.9); NEUTROPHILS # (AUTO) 11.2 X10'3 (1.8-7.7); NEUTROPHILS % (AUTO) 74.5 % (42-75); PLATELET COUNT 287 X10'3 (140-440); RED BLOOD COUNT 4.45 X10'6 (4.70-6.10); RED CELL DISTRIBUTION WIDTH 18.4 % (11.5-14.5)
[2023-03-20 19:27] LABS: ALANINE AMINOTRANSFERASE 34 U/L (12-78); ALBUMIN 3.8 G/DL (3.4-5.0); ALBUMIN/GLOBULIN RATIO 1.1 (1.1-1.5); ALKALINE PHOSPHATASE 90 IU/L (46-116); ANION GAP 12 (8-16); ASPARTATE AMINO TRANSFERASE 26 U/L (10-37); BILIRUBIN,TOTAL 0.3 MG/DL (0.1-1.0); BLOOD UREA NITROGEN 51 MG/DL (7-18); BUN/CREATININE RATIO 16.7 (10.0-20.0); CALCIUM 9.3 MG/DL (8.5-10.1); CHLORIDE 95 MMOL/L (99-107); CREATININE 3.05 MG/DL (0.60-1.10); GLUCOSE 123 MG/DL (70-104); POTASSIUM 3.7 MMOL/L (3.5-5.1); SODIUM 139 MMOL/L (135-145); TOTAL CARBON DIOXIDE 31.9 MMOL/L (24-32); TOTAL PROTEIN 7.4 G/DL (6.4-8.2); eGFR 20 ML/MIN
[2023-03-20 19:52] VITALS: TEMP 98.2
[2023-03-20 21:57] LABS: CLARITY,URINE CLEAR (Clear); COLOR,URINE YELLOW (Yellow); GLUCOSE, URINE NEGATIVE (Neg); KETONES,URINE TRACE mg/dl (Neg); LEUKOCYTE ESTERASE ,URINE NEGATIVE (Neg); NITRITES, URINE NEGATIVE (Neg); OCCULT BLOOD,URINE NEGATIVE (Neg); PH,URINE 5.5 (4.8-8.0); PROTEIN,URINE NEGATIVE (Neg); UROBILINOGEN,URINE 0.2 E.U/dL (0.2-1.0)
[2023-03-20 22:01] LABS: UA COLLECTION TYPE CLN CATCH MIDSTREAM
[2023-03-20] MEDS ORDERED: HYDR-3973 PO (22:22)
[2023-03-20] MEDS ORDERED: HYDROcodone/acetaminophen 10/325mg tab PO ONE (22:25)
[2023-03-20 23:23] VITALS: BP 146/79; PULSE 81; RESP 16; O2SAT 95
== END 2023-03-20 23:25 | disposition home or self-care (01) ==
LOC: ER 18:51
DX: S70.01XA Contusion of right hip, initial encounter (principal); D72.829 Elevated white blood cell count, unspecified; E78.00 Pure hypercholesterolemia, unspecified; I10 Essential (primary) hypertension; J44.9 Chronic obstructive pulmonary disease, unspecified; K21.9 Gastro-esophageal reflux disease without esophagitis; E11.9 Type 2 diabetes mellitus without complications; E03.9 Hypothyroidism, unspecified; Z79.82 Long term (current) use of aspirin; Z79.899 Other long term (current) drug therapy
CPT/HCPCS: 36415; 71045; 80053; 81003; 83880; 84484; 85025; 93005; 99285

== ENCOUNTER 2023-03-30 07:39 | Emergency (ER) | payer OTHER, MEDICARE ==
[~2023-03-30] VITALS: Ht 172.7 cm; Wt 78.0 kg
[~2023-03-30 07:39] MED LIST changes: +HYDR-3973 PO
[2023-03-30 07:44] VITALS: TEMP 97.5
[2023-03-30 08:05] LABS: BASOPHILS # (AUTO) 0.1 X10'3 (0-0.2); BASOPHILS % (AUTO) 0.9 % (0-1); EOSINOPHILS # (AUTO) 0.2 X10'3 (0-0.9); EOSINOPHILS % (AUTO) 1.4 % (0-6); HEMATOCRIT 36.2 % (42.0-52.0); HEMOGLOBIN 11.9 g/dl (14.0-17.9); LYMPHOCYTES # (AUTO) 1.9 X10'3 (1.1-4.8); LYMPHOCYTES % (AUTO) 11.7 % (21-51); MEAN CORPUSCULAR HEMOGLOBIN 29.3 PG (27.0-31.0); MEAN CORPUSCULAR HGB CONC 32.7 g/dL (33.0-36.5); MEAN CORPUSCULAR VOLUME 89.4 FL (78-98); MEAN PLATELET VOLUME 10.2 FL (7.4-10.4); MONOCYTES # (AUTO) 1.7 X10'3 (0-0.9); MONOCYTES % (AUTO) 10.3 % (2-12); NEUTROPHILS # (AUTO) 12.2 X10'3 (1.8-7.7); NEUTROPHILS % (AUTO) 75.7 % (42-75); PLATELET COUNT 224 X10'3 (140-440); RED BLOOD COUNT 4.05 X10'6 (4.70-6.10); RED CELL DISTRIBUTION WIDTH 19.8 % (11.5-14.5); WHITE BLOOD COUNT 16.1 X10'3 (4.5-11.0)
[2023-03-30 08:18] LABS: ANISOCYTOSIS 2+; LARGE PLATELETS FEW; PLATELET ESTIMATE NORMAL
[2023-03-30 08:22] LABS: APTT 26 SECONDS (22-32)
[2023-03-30 08:26] LABS: ALANINE AMINOTRANSFERASE 19 U/L (12-78); ALBUMIN 3.4 G/DL (3.4-5.0); ALBUMIN/GLOBULIN RATIO 1.1 (1.1-1.5); ALKALINE PHOSPHATASE 65 IU/L (46-116); ANION GAP 10 (8-16); ASPARTATE AMINO TRANSFERASE 23 U/L (10-37); BILIRUBIN,TOTAL 0.3 MG/DL (0.1-1.0); BLOOD UREA NITROGEN 34 MG/DL (7-18); BUN/CREATININE RATIO 19.5 (10.0-20.0); CALCIUM 8.8 MG/DL (8.5-10.1); CHLORIDE 101 MMOL/L (99-107); CREATININE 1.74 MG/DL (0.60-1.10); GLUCOSE 113 MG/DL (70-104); POTASSIUM 4.4 MMOL/L (3.5-5.1); SODIUM 139 MMOL/L (135-145); TOTAL CARBON DIOXIDE 28.4 MMOL/L (24-32); TOTAL PROTEIN 6.5 G/DL (6.4-8.2); eGFR 38 ML/MIN
[2023-03-30 10:10] LABS: CLARITY,URINE CLEAR (Clear); COLOR,URINE STRAW (Yellow); GLUCOSE, URINE NEGATIVE (Neg); KETONES,URINE NEGATIVE (Neg); LEUKOCYTE ESTERASE ,URINE TRACE (Neg); NITRITES, URINE NEGATIVE (Neg); OCCULT BLOOD,URINE NEGATIVE (Neg); PROTEIN,URINE NEGATIVE (Neg); UROBILINOGEN,URINE 0.2 E.U/dL (0.2-1.0)
[2023-03-30 10:15] LABS: UA COLLECTION TYPE CLN CATCH MIDSTREAM
[2023-03-30 10:16] LABS: BACTERIA,URINE FEW /HPF (Neg); MUCUS STRANDS NONE SEEN /LPF (Neg); RBC,URINE 0-2 /HPF (0-2); SQUAMOUS EPITHELIAL CELL,UR FEW /LPF (FEW); WBC CLUMPS,URINE FEW /HPF (NEGATIVE); WBC,URINE 0-4 /HPF (0-4)
[2023-03-30 11:01] VITALS: BP 123/73; PULSE 58; RESP 18; O2SAT 96
== END 2023-03-30 11:02 | disposition home or self-care (01) ==
LOC: ER 07:40
DX: R55 Syncope and collapse (principal); I25.10 Atherosclerotic heart disease of native coronary artery without angina pectoris; E78.00 Pure hypercholesterolemia, unspecified; I25.2 Old myocardial infarction; I10 Essential (primary) hypertension; J44.9 Chronic obstructive pulmonary disease, unspecified; K21.9 Gastro-esophageal reflux disease without esophagitis; E03.9 Hypothyroidism, unspecified; E11.9 Type 2 diabetes mellitus without complications; G89.29 Other chronic pain; Z95.1 Presence of aortocoronary bypass graft; Z79.82 Long term (current) use of aspirin; Z79.84 Long term (current) use of oral hypoglycemic drugs; Z79.899 Other long term (current) drug therapy
CPT/HCPCS: 36415; 70450; 71045; 80053; 81001; 83880; 84484; 85008; 85025; 85610; 85730; 87088; 93005; 99285

== ENCOUNTER 2023-04-12 16:07 | Emergency (ER) | payer OTHER, MEDICARE ==
[~2023-04-12] VITALS: Ht 175.3 cm; Wt 82.0 kg
[2023-04-12 16:11] VITALS: BP 147/91; PULSE 88; RESP 18; TEMP 98.1; O2SAT 94
[2023-04-12 17:20] LABS: BILIRUBIN,URINE NEGATIVE (Neg); CLARITY,URINE CLEAR (Clear); COLOR,URINE YELLOW (Yellow); GLUCOSE, URINE NEGATIVE (Neg); KETONES,URINE NEGATIVE (Neg); LEUKOCYTE ESTERASE ,URINE NEGATIVE (Neg); NITRITES, URINE NEGATIVE (Neg); OCCULT BLOOD,URINE NEGATIVE (Neg); PH,URINE 6.5 (4.8-8.0); PROTEIN,URINE NEGATIVE (Neg); UROBILINOGEN,URINE 0.2 E.U/dL (0.2-1.0)
[2023-04-12 17:32] LABS: UA COLLECTION TYPE VOIDED
[2023-04-12 18:22] LABS: BASOPHILS # (AUTO) 0.1 X10'3 (0-0.2); BASOPHILS % (AUTO) 1.3 % (0-1); EOSINOPHILS # (AUTO) 0.3 X10'3 (0-0.9); EOSINOPHILS % (AUTO) 3.1 % (0-6); HEMATOCRIT 36.8 % (42.0-52.0); HEMOGLOBIN 12.1 g/dl (14.0-17.9); LYMPHOCYTES # (AUTO) 3.1 X10'3 (1.1-4.8); LYMPHOCYTES % (AUTO) 31.5 % (21-51); MEAN CORPUSCULAR HEMOGLOBIN 29.8 PG (27.0-31.0); MEAN CORPUSCULAR HGB CONC 32.9 g/dL (33.0-36.5); MEAN CORPUSCULAR VOLUME 90.6 FL (78-98); MEAN PLATELET VOLUME 9.9 FL (7.4-10.4); MONOCYTES # (AUTO) 0.9 X10'3 (0-0.9); MONOCYTES % (AUTO) 9.4 % (2-12); NEUTROPHILS # (AUTO) 5.4 X10'3 (1.8-7.7); NEUTROPHILS % (AUTO) 54.7 % (42-75); PLATELET COUNT 237 X10'3 (140-440); RED BLOOD COUNT 4.06 X10'6 (4.70-6.10); RED CELL DISTRIBUTION WIDTH 21.1 % (11.5-14.5); WHITE BLOOD COUNT 9.9 X10'3 (4.5-11.0)
[2023-04-12 18:36] LABS: ALANINE AMINOTRANSFERASE 42 U/L (12-78); ALBUMIN 3.8 G/DL (3.4-5.0); ALBUMIN/GLOBULIN RATIO 1.1 (1.1-1.5); ALKALINE PHOSPHATASE 62 IU/L (46-116); ANION GAP 6 (8-16); ASPARTATE AMINO TRANSFERASE 41 U/L (10-37); BILIRUBIN,TOTAL 0.4 MG/DL (0.1-1.0); BLOOD UREA NITROGEN 29 MG/DL (7-18); BUN/CREATININE RATIO 14.1 (10.0-20.0); CALCIUM 9.4 MG/DL (8.5-10.1); CHLORIDE 98 MMOL/L (99-107); CREATININE 2.05 MG/DL (0.60-1.10); GLUCOSE 104 MG/DL (70-104); POTASSIUM 3.7 MMOL/L (3.5-5.1); SODIUM 136 MMOL/L (135-145); TOTAL CARBON DIOXIDE 31.6 MMOL/L (24-32); TOTAL PROTEIN 7.4 G/DL (6.4-8.2); eCRCL 30 ML/MIN; eGFR 32 ML/MIN
[2023-04-12 19:02] LABS: ANISOCYTOSIS 3+; PLATELET ESTIMATE NORMAL; STOMATOCYTES 1+
--- NOTE | 2023-04-12 20:55 | NUR ---
PT LEFT WALKER BEHIND WHEN D/C. CALLED PT AND LEFT A MESSAGE.
== END 2023-04-12 19:06 | disposition home or self-care (01) ==
LOC: ER 16:07
DX: J44.9 Chronic obstructive pulmonary disease, unspecified (principal); R06.02 Shortness of breath; N18.9 Chronic kidney disease, unspecified; I12.0 Hypertensive chronic kidney disease with stage 5 chronic kidney disease or end stage renal disease; E78.00 Pure hypercholesterolemia, unspecified; K21.9 Gastro-esophageal reflux disease without esophagitis; E03.9 Hypothyroidism, unspecified; Z88.8 Allergy status to other drugs, medicaments and biological substances; Z79.82 Long term (current) use of aspirin; Z79.899 Other long term (current) drug therapy; Z91.199 Patient's noncompliance with other medical treatment and regimen due to unspecified reason
CPT/HCPCS: 36415; 71045; 80053; 81003; 85008; 85025; 93005; 99285

== ENCOUNTER 2023-04-15 04:22 | Emergency (ER) | payer OTHER, MEDICARE ==
[~2023-04-15] VITALS: Ht 175.3 cm; Wt 90.9 kg
[2023-04-15 04:26] VITALS: TEMP 98.1
[2023-04-15 05:51] VITALS: BP 159/97; PULSE 86; O2SAT 98
--- NOTE | 2023-04-15 05:55 | NUR ---
C-SPINE CLEARED AND C-COLLAR REMOVED BY DR SIMEON.
[2023-04-15 06:12] LABS: BILIRUBIN,URINE NEGATIVE (Neg); CLARITY,URINE CLEAR (Clear); COLOR,URINE YELLOW (Yellow); GLUCOSE, URINE NEGATIVE (Neg); KETONES,URINE NEGATIVE (Neg); LEUKOCYTE ESTERASE ,URINE NEGATIVE (Neg); NITRITES, URINE NEGATIVE (Neg); OCCULT BLOOD,URINE NEGATIVE (Neg); PH,URINE 5.5 (4.8-8.0); PROTEIN,URINE NEGATIVE (Neg); UROBILINOGEN,URINE 0.2 E.U/dL (0.2-1.0)
[2023-04-15 06:14] LABS: UA COLLECTION TYPE CLN CATCH MIDSTREAM
[2023-04-15 06:18] LABS: BASOPHILS # (AUTO) 0.1 X10'3 (0-0.2); EOSINOPHILS # (AUTO) 0.3 X10'3 (0-0.9); EOSINOPHILS % (AUTO) 3.3 % (0-6); HEMATOCRIT 37.3 % (42.0-52.0); HEMOGLOBIN 12.3 g/dl (14.0-17.9); LYMPHOCYTES # (AUTO) 2.7 X10'3 (1.1-4.8); LYMPHOCYTES % (AUTO) 30.5 % (21-51); MEAN CORPUSCULAR HEMOGLOBIN 30.4 PG (27.0-31.0); MEAN CORPUSCULAR VOLUME 91.9 FL (78-98); MEAN PLATELET VOLUME 9.8 FL (7.4-10.4); MONOCYTES # (AUTO) 0.9 X10'3 (0-0.9); MONOCYTES % (AUTO) 10.2 % (2-12); NEUTROPHILS # (AUTO) 4.8 X10'3 (1.8-7.7); PLATELET COUNT 257 X10'3 (140-440); RED BLOOD COUNT 4.06 X10'6 (4.70-6.10); RED CELL DISTRIBUTION WIDTH 20.9 % (11.5-14.5); WHITE BLOOD COUNT 8.7 X10'3 (4.5-11.0)
[2023-04-15 06:19] LABS: ALANINE AMINOTRANSFERASE 26 U/L (12-78); ALBUMIN 3.5 G/DL (3.4-5.0); ALKALINE PHOSPHATASE 53 IU/L (46-116); ANION GAP 6 (8-16); ASPARTATE AMINO TRANSFERASE 33 U/L (10-37); BILIRUBIN,TOTAL 0.3 MG/DL (0.1-1.0); BLOOD UREA NITROGEN 25 MG/DL (7-18); BUN/CREATININE RATIO 17.4 (10.0-20.0); CHLORIDE 101 MMOL/L (99-107); CREATININE 1.44 MG/DL (0.60-1.10); GLUCOSE 101 MG/DL (70-104); POTASSIUM 3.9 MMOL/L (3.5-5.1); SODIUM 139 MMOL/L (135-145); TOTAL CARBON DIOXIDE 31.8 MMOL/L (24-32); eCRCL 43 ML/MIN; eGFR 48 ML/MIN
[2023-04-15] MEDS ORDERED: ketorolac trometh. 30mg/ml inj. IM STA (06:53)
[2023-04-15] MEDS ORDERED: acetaminophen 325mg tablet PO STA (06:53)
[2023-04-15] MEDS ORDERED: TRAM1TAB7 PO (06:57)
[2023-04-15 07:03] LABS: ANISOCYTOSIS 3+; LARGE PLATELETS MODERATE; PLATELET ESTIMATE NORMAL; POLYCHROMASIA FEW
[2023-04-15 07:08] VITALS: RESP 18
--- NOTE | 2023-04-15 07:16 | NUR ---
[facility] CALLED FOR TRANSPORT- EXPECT 45 MINS TO AN HOUR WAIT.
== END 2023-04-15 09:11 | disposition home or self-care (01) ==
LOC: ER 04:23
DX: M41.52 Other secondary scoliosis, cervical region (principal); E78.00 Pure hypercholesterolemia, unspecified; I10 Essential (primary) hypertension; J44.9 Chronic obstructive pulmonary disease, unspecified; K21.9 Gastro-esophageal reflux disease without esophagitis; E03.9 Hypothyroidism, unspecified; E11.9 Type 2 diabetes mellitus without complications; Z88.8 Allergy status to other drugs, medicaments and biological substances; Z79.82 Long term (current) use of aspirin; Z79.899 Other long term (current) drug therapy
CPT/HCPCS: 36415; 70450; 72125; 80053; 81003; 84484; 85008; 85025; 96372; 99285; J1885

== ENCOUNTER 2023-07-10 03:45 | Inpatient (IN) | payer OTHER, MEDICARE ==
[~2023-07-10] VITALS: Ht 175.3 cm; Wt 79.9 kg
[~2023-07-10 03:45] MED LIST changes: -HYDR-3973 PO
[2023-07-10 04:20] LABS: BASOPHILS # (AUTO) 0.2 X10'3 (0-0.2); BASOPHILS % (AUTO) 1.5 % (0-1); EOSINOPHILS # (AUTO) 0.4 X10'3 (0-0.9); EOSINOPHILS % (AUTO) 3.4 % (0-6); HEMATOCRIT 39.4 % (42.0-52.0); HEMOGLOBIN 12.9 g/dl (14.0-17.9); LYMPHOCYTES # (AUTO) 2.2 X10'3 (1.1-4.8); LYMPHOCYTES % (AUTO) 19.1 % (21-51); MEAN CORPUSCULAR HEMOGLOBIN 31.1 PG (27.0-31.0); MEAN CORPUSCULAR HGB CONC 32.6 g/dL (33.0-36.5); MEAN CORPUSCULAR VOLUME 95.2 FL (78-98); MEAN PLATELET VOLUME 10.9 FL (7.4-10.4); MONOCYTES # (AUTO) 0.7 X10'3 (0-0.9); NEUTROPHILS # (AUTO) 8.1 X10'3 (1.8-7.7); PLATELET COUNT 243 X10'3 (140-440); RED BLOOD COUNT 4.14 X10'6 (4.70-6.10); RED CELL DISTRIBUTION WIDTH 14.4 % (11.5-14.5); WHITE BLOOD COUNT 11.6 X10'3 (4.5-11.0)
[2023-07-10 04:36] LABS: ALANINE AMINOTRANSFERASE 14 U/L (12-78); ALBUMIN 3.5 G/DL (3.4-5.0); ALKALINE PHOSPHATASE 73 IU/L (46-116); ANION GAP 6 (8-16); ASPARTATE AMINO TRANSFERASE 17 U/L (10-37); BILIRUBIN,TOTAL 0.3 MG/DL (0.1-1.0); BLOOD UREA NITROGEN 31 MG/DL (7-18); BUN/CREATININE RATIO 18.8 (10.0-20.0); CALCIUM 8.6 MG/DL (8.5-10.1); CHLORIDE 103 MMOL/L (99-107); CREATININE 1.65 MG/DL (0.60-1.10); GLUCOSE 127 MG/DL (70-104); POTASSIUM 4.3 MMOL/L (3.5-5.1); SODIUM 139 MMOL/L (135-145); TOTAL CARBON DIOXIDE 29.7 MMOL/L (24-32); eCRCL 37 ML/MIN; eGFR 41 ML/MIN
[2023-07-10 04:43] LABS: ETHANOL < 10 MG/DL (<10); MAGNESIUM 2.1 MG/DL (1.5-2.4); PRO BRAIN NATRIURETIC PEPTIDE 636 PG/ML (0-450); SALICYLATE 1.1 MG/DL (4.0-20.0)
[2023-07-10 05:01] LABS: ACETAMINOPHEN < 2.0 UG/ML (10-30)
[2023-07-10 07:07] LABS: GIANT PLATELET FEW; LARGE PLATELETS MODERATE; PLATELET ESTIMATE NORMAL
[2023-07-10] MEDS ORDERED: potassium Cl 20 mEq SR tablet PO PRN ×2 (08:25)
[2023-07-10] MEDS ORDERED: magnesium Cl slow-release 64mg tablet PO PRN (08:25)
[2023-07-10] MEDS ORDERED: acetaminophen 325mg tablet PO PRN (08:25)
[2023-07-10] MEDS ORDERED: potassium Cl 40MEQ/1/2NS 520ml 520 ML IV PRN (08:25)
[2023-07-10] MEDS ORDERED: magnesium 4gm in 100ml NS 100 ML IV PRN (08:25)
[2023-07-10] MEDS ORDERED: ondansetron/PF 4mg/2ml inj IV PRN (08:25)
[2023-07-10] MEDS ORDERED: magnesium 2GM in 50ml NS 50 ML IV PRN (08:25)
[2023-07-10] MEDS: normal saline 1000ml 1,000 ML IV SCH ×2 (10:30→19:17)
[2023-07-10] MEDS ORDERED: AMLO1CAP77 PO (16:36)
[2023-07-10] MEDS ORDERED: FURO-150 PO (16:36)
[2023-07-10] MEDS ORDERED: POTA-188 PO (16:36)
[2023-07-10] MEDS ORDERED: zolpidem 5mg tablet PO PRN (18:40)
[2023-07-10 18:59] LABS: URINE AMPHETAMINE SCREEN NEGATIVE (Neg); URINE BARBITUATE SCREEN NEGATIVE (Neg); URINE BENZODIAZEPINES SCREEN NEGATIVE (Neg); URINE CANNABINOID SCREEN NEGATIVE (Neg); URINE COCAINE SCREEN NEGATIVE (Neg); URINE METHADONE SCREEN NEGATIVE (Neg); URINE OPIATE SCREEN NEGATIVE (Neg); URINE PHENCYCLIDINE SCREEN NEGATIVE (Neg)
[2023-07-10 19:01] LABS: BILIRUBIN,URINE NEGATIVE (Neg); CLARITY,URINE CLEAR (Clear); COLOR,URINE YELLOW (Yellow); GLUCOSE, URINE NEGATIVE (Neg); KETONES,URINE NEGATIVE (Neg); LEUKOCYTE ESTERASE ,URINE NEGATIVE (Neg); NITRITES, URINE NEGATIVE (Neg); OCCULT BLOOD,URINE NEGATIVE (Neg); PH,URINE 5.5 (4.8-8.0); PROTEIN,URINE NEGATIVE (Neg); UROBILINOGEN,URINE 0.2 E.U/dL (0.2-1.0)
[2023-07-10 19:05] LABS: UA COLLECTION TYPE CLN CATCH MIDSTREAM
[2023-07-10] MEDS: tamsulosin 0.4mg capsule PO SCH (19:18)
[2023-07-10] MEDS: aspirin 81mg tab.chew PO SCH (19:18)
[2023-07-10] MEDS: potassium chloride 10mEq ER tablet PO SCH (19:18)
[2023-07-10] MEDS: clopidogrel 75mg tablet PO SCH (19:19)
[2023-07-10] MEDS: furosemide 20MG tablet PO SCH (19:19)
[2023-07-10] MEDS: cyanocobalamin 500mcg tablet PO SCH (19:20)
[2023-07-10] MEDS: pantoprazole 40mg Tablet.DR PO SCH (19:20)
[2023-07-10] MEDS: K and/or MAG REPLACEMENT MC SCH (19:21)
[2023-07-10 19:47] VITALS: PULSE 92; RESP 18; O2SAT 93
[2023-07-10 19:51] VITALS: PULSE 91; RESP 18
[2023-07-10] MEDS: carvedilol 6.25mg tablet PO SCH (20:00)
[2023-07-10] MEDS: carBAMazepine Ext. Release 200 MG TAB.ER.12H PO SCH (20:00)
[2023-07-10] MEDS: montelukast 10mg tablet PO SCH (21:07)
[2023-07-10] MEDS: ROSUVASTATIN CALCIUM 5 MG TABLET PO SCH (21:07)
[2023-07-10] MEDS: latanoprost 0.005% 2.5ml ophthalmic drops RIGHTEYE SCH (21:08)
[2023-07-11] VITALS (10 sets, daily range): BP systolic 128–178; BP diastolic 84–100; PULSE 83–119; RESP 16–22; TEMP 97.7–98.5; O2SAT 90–93
[2023-07-11] MEDS ORDERED: labetalol 20mg/4ml (5mg/ml) syringe IV STA (01:22)
[2023-07-11] MEDS: normal saline 1000ml 1,000 ML IV SCH ×3 (04:25→22:00)
[2023-07-11] MEDS: albuterol 2.5 MG/3 ML nebule NEB PRN ×2 (04:55→20:28)
[2023-07-11] MEDS: carvedilol 6.25mg tablet PO SCH ×2 (06:52→20:34)
[2023-07-11] MEDS: carBAMazepine Ext. Release 200 MG TAB.ER.12H PO SCH ×2 (08:00→20:36)
[2023-07-11] MEDS: CARBOXYMETHYLCELLULOSE SODIUM EACHEYE SCH ×4 (08:00→21:00)
[2023-07-11] MEDS: K and/or MAG REPLACEMENT MC SCH ×2 (08:00→20:00)
[2023-07-11] MEDS: timolol 0.5% ophthalmic solution 5ml bottle RIGHTEYE SCH (08:00)
[2023-07-11 09:47] LABS: BASOPHILS # (AUTO) 0.1 X10'3 (0-0.2); BASOPHILS % (AUTO) 1.3 % (0-1); EOSINOPHILS # (AUTO) 0.5 X10'3 (0-0.9); EOSINOPHILS % (AUTO) 4.9 % (0-6); HEMATOCRIT 41.3 % (42.0-52.0); HEMOGLOBIN 13.3 g/dl (14.0-17.9); LYMPHOCYTES # (AUTO) 1.8 X10'3 (1.1-4.8); LYMPHOCYTES % (AUTO) 16.2 % (21-51); MEAN CORPUSCULAR HGB CONC 32.3 g/dL (33.0-36.5); MEAN CORPUSCULAR VOLUME 95.9 FL (78-98); MEAN PLATELET VOLUME 11.2 FL (7.4-10.4); MONOCYTES # (AUTO) 1.2 X10'3 (0-0.9); MONOCYTES % (AUTO) 10.5 % (2-12); NEUTROPHILS # (AUTO) 7.5 X10'3 (1.8-7.7); NEUTROPHILS % (AUTO) 67.1 % (42-75); PLATELET COUNT 249 X10'3 (140-440); RED BLOOD COUNT 4.31 X10'6 (4.70-6.10); RED CELL DISTRIBUTION WIDTH 14.8 % (11.5-14.5); WHITE BLOOD COUNT 11.2 X10'3 (4.5-11.0)
[2023-07-11 09:58] LABS: ALBUMIN 3.4 G/DL (3.4-5.0); ANION GAP 9 (8-16); BLOOD UREA NITROGEN 21 MG/DL (7-18); BUN/CREATININE RATIO 14.7 (10.0-20.0); CALCIUM 9.1 MG/DL (8.5-10.1); CHLORIDE 104 MMOL/L (99-107); CREATININE 1.43 MG/DL (0.60-1.10); GLUCOSE 110 MG/DL (70-104); SODIUM 143 MMOL/L (135-145); TOTAL CARBON DIOXIDE 30.5 MMOL/L (24-32); eCRCL 43 ML/MIN; eGFR 48 ML/MIN
[2023-07-11 10:28] LABS: LARGE PLATELETS FEW
[2023-07-11 10:29] LABS: ANISOCYTOSIS 1+
[2023-07-11] MEDS: potassium chloride 10mEq ER tablet PO SCH (12:33)
[2023-07-11] MEDS: furosemide 20MG tablet PO SCH (12:33)
[2023-07-11] MEDS: levoTHYROXINE 75mcg tablet PO SCH (12:33)
[2023-07-11] MEDS: clopidogrel 75mg tablet PO SCH (12:33)
[2023-07-11] MEDS: pantoprazole 40mg Tablet.DR PO SCH (12:33)
[2023-07-11] MEDS: cyanocobalamin 500mcg tablet PO SCH (12:33)
[2023-07-11] MEDS: duloxetine 20mg capsule.DR PO SCH (12:33)
[2023-07-11] MEDS: aspirin 81mg tab.chew PO SCH (12:33)
[2023-07-11] MEDS: tamsulosin 0.4mg capsule PO SCH (12:33)
[2023-07-11] MEDS ORDERED: FLU VACC QS2023-24(6MOS UP)/PF 60 MCG/0.5 ML SYRINGE IMVAC ONE (13:00)
[2023-07-11] MEDS: montelukast 10mg tablet PO SCH (20:34)
[2023-07-11] MEDS: ROSUVASTATIN CALCIUM 5 MG TABLET PO SCH (20:35)
[2023-07-11] MEDS: latanoprost 0.005% 2.5ml ophthalmic drops RIGHTEYE SCH (20:36)
[2023-07-12 02:00] VITALS: BP 126/72; PULSE 84; RESP 20; TEMP 98.2; O2SAT 91
[2023-07-12 06:30] VITALS: BP 170/80; PULSE 87; RESP 20; TEMP 97; O2SAT 96
[2023-07-12 06:58] LABS: BASOPHILS # (AUTO) 0.2 X10'3 (0-0.2); BASOPHILS % (AUTO) 1.6 % (0-1); EOSINOPHILS # (AUTO) 0.7 X10'3 (0-0.9); EOSINOPHILS % (AUTO) 6.5 % (0-6); HEMATOCRIT 40.7 % (42.0-52.0); HEMOGLOBIN 13.4 g/dl (14.0-17.9); LYMPHOCYTES # (AUTO) 2.3 X10'3 (1.1-4.8); LYMPHOCYTES % (AUTO) 22.1 % (21-51); MEAN CORPUSCULAR HEMOGLOBIN 31.2 PG (27.0-31.0); MEAN CORPUSCULAR HGB CONC 32.8 g/dL (33.0-36.5); MEAN PLATELET VOLUME 10.9 FL (7.4-10.4); MONOCYTES # (AUTO) 1.1 X10'3 (0-0.9); NEUTROPHILS # (AUTO) 6.1 X10'3 (1.8-7.7); NEUTROPHILS % (AUTO) 58.8 % (42-75); PLATELET COUNT 228 X10'3 (140-440); RED BLOOD COUNT 4.29 X10'6 (4.70-6.10); RED CELL DISTRIBUTION WIDTH 14.7 % (11.5-14.5); WHITE BLOOD COUNT 10.3 X10'3 (4.5-11.0)
[2023-07-12 07:16] LABS: ALBUMIN 3.2 G/DL (3.4-5.0); ANION GAP 10 (8-16); BLOOD UREA NITROGEN 21 MG/DL (7-18); BUN/CREATININE RATIO 17.6 (10.0-20.0); CALCIUM 8.9 MG/DL (8.5-10.1); CHLORIDE 103 MMOL/L (99-107); CREATININE 1.19 MG/DL (0.60-1.10); GLUCOSE 103 MG/DL (70-104); POTASSIUM 3.6 MMOL/L (3.5-5.1); SODIUM 142 MMOL/L (135-145); TOTAL CARBON DIOXIDE 29.4 MMOL/L (24-32); eCRCL 51 ML/MIN; eGFR 59 ML/MIN
[2023-07-12 07:37] VITALS: O2SAT 91
[2023-07-12] MEDS: timolol 0.5% ophthalmic solution 5ml bottle RIGHTEYE SCH (08:00)
[2023-07-12] MEDS: CARBOXYMETHYLCELLULOSE SODIUM EACHEYE SCH (08:00)
[2023-07-12] MEDS: carvedilol 6.25mg tablet PO SCH (09:27)
[2023-07-12] MEDS: furosemide 20MG tablet PO SCH (09:27)
[2023-07-12] MEDS: tamsulosin 0.4mg capsule PO SCH (09:27)
[2023-07-12] MEDS: pantoprazole 40mg Tablet.DR PO SCH (09:27)
[2023-07-12] MEDS: clopidogrel 75mg tablet PO SCH (09:27)
[2023-07-12] MEDS: duloxetine 20mg capsule.DR PO SCH (09:27)
[2023-07-12] MEDS: levoTHYROXINE 75mcg tablet PO SCH (09:27)
[2023-07-12] MEDS: aspirin 81mg tab.chew PO SCH (09:27)
[2023-07-12] MEDS: cyanocobalamin 500mcg tablet PO SCH (09:28)
[2023-07-12] MEDS: potassium chloride 10mEq ER tablet PO SCH (09:28)
[2023-07-12 10:21] LABS: PLATELET ESTIMATE NORMAL
[2023-07-12 10:30] VITALS: BP 165/95; PULSE 86; RESP 20; TEMP 98.7; O2SAT 93
[2023-07-12] MEDS ORDERED: FLU VACC QS2023-24(6MOS UP)/PF 60 MCG/0.5 ML SYRINGE IMVAC ONE (11:00)
[2023-07-12 13:08] LABS: THYROID STIMULATING HORMONE 1.85 ulU/ml (0.34-4.50)
[2023-07-12 21:29] VITALS: PULSE 68; RESP 18; O2SAT 98
== END 2023-07-12 14:50 | disposition home health service (06) | DRG 91 ==
LOC: ER 03:46 → ED HOLD 08:25 → PCU 3S 07-11 08:03
PROVIDERS: ADMIT Internal Medicine; ATTEND Internal Medicine
DX: G92.8 Other toxic encephalopathy (principal); J96.20 Acute and chronic respiratory failure, unspecified whether with hypoxia or hypercapnia; N17.9 Acute kidney failure, unspecified; E03.9 Hypothyroidism, unspecified; E11.9 Type 2 diabetes mellitus without complications; E78.00 Pure hypercholesterolemia, unspecified; F32.A Depression, unspecified; D64.9 Anemia, unspecified; K21.9 Gastro-esophageal reflux disease without esophagitis; F03.90 Unspecified dementia, unspecified severity, without behavioral disturbance, psychotic disturbance, mood disturbance, and anxiety; I10 Essential (primary) hypertension; I25.10 Atherosclerotic heart disease of native coronary artery without angina pectoris; I25.2 Old myocardial infarction; N40.0 Benign prostatic hyperplasia without lower urinary tract symptoms; Z79.84 Long term (current) use of oral hypoglycemic drugs; Z95.1 Presence of aortocoronary bypass graft; T43.625A Adverse effect of amphetamines, initial encounter; Y92.9 Unspecified place or not applicable
CPT/HCPCS: 36415; 70450; 71045; 80048; 80053; 80305; 80320; 80329; 81003; 83735; 83880; 84132; 84145; 84443; 85008; 85025; 87081; 90686; 94640; 94760; 99285; A4615; G0378; J7030

== ENCOUNTER 2023-10-18 00:23 | Emergency (ER) | payer OTHER, MEDICARE ==
[~2023-10-18] VITALS: Ht 172.7 cm; Wt 88.6 kg
[~2023-10-18 00:23] MED LIST changes: -ALBU18HF2 INH; -ALBU2.5V13 NEB; +AMLO1CAP77 PO; -CARB-212 PO; -CARB-226 EACHEYE; -CHOL100046 PO; +FURO-150 PO; -ISOS20TA15 PO; -LIDO700A32 TOP; -METF-516 PO; -METH4TAB81 PO; -NIFE-33 PO; +POTA-188 PO; +[UNRECOGNIZED DRUG - CODE] EACHEYE
[2023-10-18 00:36] VITALS: BP 176/82; PULSE 78; RESP 20; TEMP 98; O2SAT 91
[2023-10-18 01:02] LABS: BILIRUBIN,URINE NEGATIVE (Neg); CLARITY,URINE SLIGHTLY CLOUDY (Clear); COLOR,URINE YELLOW (Yellow); GLUCOSE, URINE NEGATIVE (Neg); KETONES,URINE NEGATIVE (Neg); LEUKOCYTE ESTERASE ,URINE SMALL (Neg); NITRITES, URINE NEGATIVE (Neg); OCCULT BLOOD,URINE LARGE (Neg); PROTEIN,URINE NEGATIVE (Neg); UROBILINOGEN,URINE 0.2 E.U/dL (0.2-1.0)
[2023-10-18 01:07] LABS: UA COLLECTION TYPE FOLEY CATH
[2023-10-18 01:09] LABS: BACTERIA,URINE FEW /HPF (Neg); RBC,URINE 50-100 /HPF (0-2); SQUAMOUS EPITHELIAL CELL,UR FEW /LPF (FEW); TRANSITIONAL EPI CELLS,URINE FEW /HPF
[2023-10-18] MEDS ORDERED: [UNRECOGNIZED DRUG - CODE] PO (05:21)
== END 2023-10-18 06:00 | disposition left against medical advice (07) ==
LOC: ER 00:25
DX: T83.518A Infection and inflammatory reaction due to other urinary catheter, initial encounter (principal); E78.00 Pure hypercholesterolemia, unspecified; I10 Essential (primary) hypertension; K21.9 Gastro-esophageal reflux disease without esophagitis; E11.9 Type 2 diabetes mellitus without complications; E03.9 Hypothyroidism, unspecified; J44.9 Chronic obstructive pulmonary disease, unspecified; Z88.8 Allergy status to other drugs, medicaments and biological substances; Z79.899 Other long term (current) drug therapy; Y92.89 Other specified places as the place of occurrence of the external cause
CPT/HCPCS: 51702; 81001; 87088; 99283; 99284